=== PATIENT | male | born 1965 | race Caucasian/White ===

== ENCOUNTER 2017-05-20 01:11 | Emergency (ER) | payer SELFPAY ==
[2017-05-20 01:17] VITALS: BP 135/85; BMI 34.2
[2017-05-20] MEDS ORDERED: DECADRON INJ IM ONE (02:09)
[2017-05-20] MEDS ORDERED: TORADOL 60 MG VIAL IM ONE (02:09)
[2017-05-20] MEDS ORDERED: DECADRON INJ ONE (02:14)
[2017-05-20] MEDS ORDERED: TORADOL 60 MG VIAL ONE (02:14)
--- NOTE | 2017-05-20 02:15 | DR.GENAD ---
HPI - Complaint/Symptoms Chief Complaint Doctors Comments: Patient is complaining of severe flare up of his gout. states he is having right toe, left elbow, left great toe and left knee pain getting worst since he ran out of his Voltaren. States he was taking indocin but it gave him an ulcer and they changed him to voltaren and it has been working until recently. States six months ago they increased his lasix from20 to 40mg and he started having problems with his gout and they changed him to HCTZ three days ago plus allopurinol. States they were going to try him on Uloric but it cost over six hundred dollar and he could not afford it. states he has been taking voltaren 75mg tid. They stopped colchicine because it stopped working. He denies any recent trauma. States he has been eating chicken and maltese food. Patient states he has had gout for 19 years and does not want den x-rays of his feet tonight. Chief Complaint:: states that he began taking alopurinol and has a gout flare up. Self Treatment fo Chief Complaint: alopurinol - Nurses notes reviewed Nurses Notes Review: Yes - Source History Provided: Patient - Mode of Arrival Mode of Arrival: Wheelchair - Timing Onset of Chief Complaint: 05/17/17 Came on: Gradually - Duration Duration: Constant How lon Duration: Days - Location Location: right great toe - Severity Severity: Severe - Modifying Factors Worsens:: movement, walking Improves:: nothing PMH - PMH Past Medical History: Yes Past Medical History: Asthma, COPD, Depression, Gout, Hypertension, [place] Past Surgical History: Yes Surgical History: CABG/Valve Surgery, Ortho Surgery, Tonsillectomy - Family History History of Family Medical Conditions: Yes Family Medical History: Diabetes Mellitus, Cancer, [place], Heart Failure, Hypertension - infectious screening Have you traveled outside the country in the last 6 months?: No ROS - Review of Systems Constitutional: No Symptoms Reported. negative: See HPI, Chills, Diaphoresis, Fever, Malaise, Weakness, Irritable, Fatigue, Loss of Appetite, Other Eyes: No Symptoms Reported. negative: See HPI, Eye Pain, Blurred Vision, Tearing, Discharge, Photophobia, Diplopia, Other ENTM: No Symptoms Reported. negative: See HPI, Ear Pain, Ear Discharge, Pulling on Ears, Hearing Loss, Nose Pain, Nose Discharge, Epistaxis, Nose Congestion, Mouth Pain, Mouth Swelling, Loose Teeth, Drooling, Throat Pain, Throat Swelling, Ear Foreign Body Respiratoy: No Symptoms Reported Cardiovascular: No Symptoms Reported. negative: See HPI, Chest Pain, Edema, Palpitations, Syncope, Cyanosis, Skin Mottling, Other Gastrointestinal/Abdominal: No Symptoms Reported. negative: See HPI, Abdominal Pain, Constipation, Diarrhea, Nausea, Vomiting, Food Intolerance, Other Genitourinary: No Symptoms Reported Neurological: No Symptoms Reported, Problems Walking (severe right foot pain). negative: See HPI, Anxiety, Depressed, Emotional Problems, Headache, Numbness, Paresthesia, Pre-existing Deficit, Seizure, Tingling, Tremors, Weakness, Dizziness, Speech Problem, Other Musculoskeletal: Right, Left, Elbow, Knee, Foot Integumentary: No Symptoms Reported. negative: See HPI, Change in Color, Change in Hair/Nails, Dryness, Lesions, Lumps, Rash, Itching, Wound, Bruises, Juandice, Other Hematologic/Lymphatic: No Symptoms Reported. negative: See HPI, Anemia, Blood Clots, Easy Bleeding, Easy Bruising, Swollen Glands, Lymphadenopathy, Other Endocrine: No Symptoms Reported Psychiatric: No Symptoms Reported PE - Vital Signs Vitals: Temperature 98.5 F Pulse Rate 97 Respiratory Rate 18 Blood Pressure 135/85 O2 Sat by Pulse Oximetry 99 - General Limitations: No Limitations General Appearance: Alert, In Distress (moderate) - Head Head Exam: Normal Inspection, Atraumatic, Normocephalic - Eyes Eye exam: Normal Appearance, PERRL, EOMI. negative: Scleral Icterus, Conjunctival Injection, Nystagmus, Miosis, Mydrasis, Periorbital Swelling, Periorbital Tenderness, Other - ENT ENT Exam: Normal Exam, Normal Oropharynx, Normal External Ear Exam, Mucous Membranes Moist, TM's Normal Bilaterally External Ear Exam: Normal External Inspection TM/Canal Exam: Bilateral Normal Nose Exam: Normal Nose Exam Mouth Exam: Normal Inspection. negative: Drooling, Trismus, Lip Swelling, Tongue Elevation, Tongue Swelling, Laceration, Other Throat Exam: Normal Inspection. negative: Tonsillar Erythema, Tonsillomegaly, Tonsillar Exudate, R Peritonsillar Mass, L Peritonsillar Mass, Muffled Voice, Other - Neck Neck Exam: Normal Inspection, Full ROM, Trachea Midline - Chest Chest Inspection: Normal Inspection, Symmetric Chest Wall Rise - Respiratory Respiratory Exam: Normal Lung Sounds Bilat Respiratory Exam: Bilateral Clear to Auscultation - Cardiovascular Cardiovascular Exam: Regular Rate, Normal Rhythm, Normal Heart Sounds. negative : Bradycardia, Tachycardia, Irregular Rhythm, Systolic Murmur, Diastolic Murmur , Rubs, Gallop, Clicks, JVD, +S1, +S2, +S3, +S4, Other - Abdominal Exam Abdominal Exam: Normal Inspection, Normal Bowel Sounds, Soft Abdominal Tenderness: negative: RUQ, RLQ, LUQ, LLQ, Epigastrium, Suprapubic, Diffuse, Mild, Moderate, Severe, Other - Extremities Extremities Exam: Normal Inspection, Full ROM, Tenderness (right great toe; left great toe pain and swelling with erythema), Normal Capillary Refill - Back Back Exam: Normal Inspection, Full ROM. negative: Tenderness, (R) CVA Tenderness, (L) CVA Tenderness, Muscle Spasm, Paraspinal Tenderness, Vertebral Tenderness, Rashes, (R) Sciatic Notch Tenderness, (L) Sciatic Notch Tendern, (R ) Straight Leg Raise, (L) Straight Leg Raise, Other - Neurologic Neurological Exam: Alert, Oriented X3, CN II-XII Intact, Reflexes Normal. negative: Normal Gait (gait not tested) - Psychiatric Psychiatric Exam: Normal Affect, Normal Mood - Skin Skin Exam: Warm, Dry, Intact, Normal Color, Erythema. negative: Rash, Diaphoresis ROR - Labs Reviewed Laboratory Results Reviewed?: Yes (all labs results reviewed and discussed with patient) Result Diagrams: 05/20/17 02:17 05/20/17 02:17 Laboratory: WBC 16.3 X10^3/uL (3.6-10.0) H 05/20/17 02:17 RBC 4.93 X10^6/uL (4.7-6.0) 05/20/17 02:17 Hgb 14.0 g/dL (13.5-18.0) 05/20/17 02:17 Hct 41.2 % (42.0-54.0) L 05/20/17 02:17 MCV 83.6 fL (80.0-100.0) 05/20/17 02:17 MCH 28.4 pg (27.0-34.0) 05/20/17 02:17 MCHC 34.0 g/dL (33.0-35.0) 05/20/17 02:17 RDW 14.1 % (11.6-16.5) 05/20/17 02:17 Plt Count 217 X10^3/uL (150.0-450.0) 05/20/17 02:17 MPV 9.0 fL (7.4-11.0) 05/20/17 02:17 Neut % 78.5 % (42.0-75.0) H 05/20/17 02:17 Lymph % 11.4 % (21.0-51.0) L 05/20/17 02:17 Elliott % 8.6 % (0.0-13.0) 05/20/17 02:17 Eos % 0.4 % (0.9-2.9) L 05/20/17 02:17 Baso % 1.1 % (0.2-1.0) H 05/20/17 02:17 Neut # 12.8 x10^3/uL (2.2-4.8) H 05/20/17 02:17 Lymph # 1.9 X10^3/uL (1.3-2.9) 05/20/17 02:17 Elliott # 1.4 x10^3/uL (0.3-0.8) H 05/20/17 02:17 Eos # 0.1 x10^3/uL (0.0-0.2) 05/20/17 02:17 Baso # 0.2 X10^3/uL (0.0-0.1) H 05/20/17 02:17 Absolute Nucleated RBC 0.0 /100WBC 05/20/17 02:17 Sodium 133 mmol/L (136-145) L 05/20/17 02:17 Corrected Sodium 133 mmol/L (136-145) L 05/20/17 02:17 Potassium 3.8 mmol/L (3.5-5.1) 05/20/17 02:17 Chloride 98 mmol/L (98-107) 05/20/17 02:17 Carbon Dioxide 30.5 mmol/L (21-32) 05/20/17 02:17 BUN 12 mg/dL (7-18) 05/20/17 02:17 Creatinine 1.11 mg/dL (0.70-1.30) 05/20/17 02:17 Est GFR (MDRD) Af Amer > 60 (>60) 05/20/17 02:17 Est GFR (MDRD) Non-Af > 60 (>60) 05/20/17 02:17 Glucose 111 mg/dL (65-99) H 05/20/17 02:17 Uric Acid 5.8 mg/dL (3.5-7.2) 05/20/17 02:17 Calcium 9.1 mg/dL (8.5-10.1) 05/20/17 02:17 - Diagnosis Discharge Problem: Bilateral foot pain, Hyperglycemia Gout attack Qualifiers: Gout site: foot Gout etiology: unspecified cause Laterality: right Qualified Code(s): M10.9 - Gout, unspecified - Discharge Plan Disposition: HOME, SELF-CARE Condition: Stable Prescriptions: Diclofenac Sodium 75 mg PO TID PRN #30 tablet. PRN Reason: Methylprednisolone Dosepak 4Mg [MEDROL DOSEPAK (4 mg tab x 21)] 1 sea PO ONCE # 1 sea - Follow ups/Referrals Follow ups/Referrals: [facility],None [Primary Care Provider] - 3 days PATRICIO JONES [STAFF PHYSICIAN] - 3 days - Instructions Instructions: Low-Purine Diet, Gout, [id number]
[2017-05-20 02:24] LABS: BASOPHILS # (AUTO) 0.2 X10^3/uL (0.0-0.1); BASOPHILS % (AUTO) 1.1 % (0.2-1.0); EOSINOPHILS # (AUTO) 0.1 x10^3/uL (0.0-0.2); EOSINOPHILS % (AUTO) 0.4 % (0.9-2.9); HEMATOCRIT 41.2 % (42.0-54.0); LYMPHOCYTES # (AUTO) 1.9 X10^3/uL (1.3-2.9); LYMPHOCYTES % (AUTO) 11.4 % (21.0-51.0); MEAN CORPUSCULAR HEMOGLOBIN 28.4 pg (27.0-34.0); MEAN CORPUSCULAR VOLUME 83.6 fL (80.0-100.0); MONOCYTES # (AUTO) 1.4 x10^3/uL (0.3-0.8); MONOCYTES % (AUTO) 8.6 % (0.0-13.0); NEUTROPHILS # (AUTO) 12.8 x10^3/uL (2.2-4.8); NEUTROPHILS % (AUTO) 78.5 % (42.0-75.0); PLATELET COUNT 217 X10^3/uL (150.0-450.0); RED BLOOD COUNT 4.93 X10^6/uL (4.7-6.0); RED CELL DISTRIBUTION WIDTH 14.1 % (11.6-16.5); WHITE BLOOD COUNT 16.3 X10^3/uL (3.6-10.0)
[2017-05-20 02:37] LABS: BLOOD UREA NITROGEN 12 mg/dL (7-18); CALCIUM 9.1 mg/dL (8.5-10.1); CARBON DIOXIDE 30.5 mmol/L (21-32); CHLORIDE 98 mmol/L (98-107); COR NA(FOR HYPERGLY) 133 mmol/L (136-145); CREATININE 1.11 mg/dL (0.70-1.30); SODIUM 133 mmol/L (136-145); URIC ACID 5.8 mg/dL (3.5-7.2); eGFR BLACK RACES > 60 (>60); eGFR NON BLACK RACES > 60 (>60)
== END 2017-05-20 04:45 | disposition home or self-care (01) ==
LOC: ER 01:11
DX: M10.9 Gout, unspecified (principal); R73.9 Hyperglycemia, unspecified; M79.671 Pain in right foot; M79.672 Pain in left foot
CPT/HCPCS: 36415; 80048; 84550; 85025; 96372; 99282; 99283; J1100; J1885